=== PATIENT | female | born 1995 | race Caucasian/White ===

== ENCOUNTER 2016-09-07 09:17 | Emergency (ER) | payer SELFPAY ==
[2016-09-07 10:21] LABS: HCG URINE NEGATIVE (NEGATIVE)
[2016-09-07 10:22] LABS: APPEARANCE CLOUDY (CLEAR); BACTERIA MODERATE /hpf (NONE SEEN); BILIRUBIN NEGATIVE (NEGATIVE); COLOR YELLOW (YELLOW); GLUCOSE NEGATIVE (NEGATIVE); KETONE NEGATIVE (NEGATIVE); LEUKOCYTE ESTERASE 1+ (NEGATIVE); NITRITE NEGATIVE (NEGATIVE); PROTEIN NEGATIVE (NEGATIVE); UROBILINOGEN NORMAL (NORMAL); WHITE CELLS - URINE 0-5 /hpf (0-5)
[2016-09-07 10:23] LABS: EPITHELIAL CELLS 0-5 /hpf (0-5); RED CELLS - URINE NONE SEEN /hpf (0-5)
== END 2016-09-07 12:00 | disposition home or self-care (01) ==
LOC: D.ER 09:17
PROVIDERS: Emergency Medicine
DX: N76.0 Acute vaginitis (principal)

== ENCOUNTER 2018-01-12 11:47 | Emergency (ER) | payer SELFPAY ==
[~2018-01-12] VITALS: Ht 175.3 cm; Wt 80.0 kg
[2018-01-12 12:22] VITALS: Ht 175.3 cm; Wt 80.0 kg
[2018-01-12 14:49] VITALS: BP 119/84
== END 2018-01-12 14:49 | disposition home or self-care (01) ==
LOC: D.ER 11:47
DX: S00.83XA Contusion of other part of head, initial encounter (principal); V23.4XXA Motorcycle driver injured in collision with car, pick-up truck or van in traffic accident, initial encounter; Y93.89 Activity, other specified; Y92.410 Unspecified street and highway as the place of occurrence of the external cause; R22.9 Localized swelling, mass and lump, unspecified

== ENCOUNTER 2019-03-27 10:53 | Emergency (ER) | payer MEDICAID ==
[~2019-03-27] VITALS: Ht 175.3 cm; Wt 75.0 kg
[2019-03-27 10:58] VITALS: Ht 175.3 cm; Wt 75.0 kg
[2019-03-27 11:29] LABS: BASOPHILS 0.4 % (0-2); EOSINOPHILS 1.5 % (0-7); HEMATOCRIT 41.4 % (36.0-48.0); HEMOGLOBIN 14.4 g/dL (12-16); IMMATURE GRANULOCYTES 0.1 % (0-5); LYMPHOCYTES 32.7 % (15-50); MCH 30.4 pg (26.0-34.0); MCHC 34.8 g/dL (31.0-37.0); MCV 87.5 fL (80.0-100.0); MEAN PLATELET VOLUME 9.7 fL (7.4-10.4); MONOCYTES 7.8 % (2-11); NEUTROPHILS 57.5 % (40-80); PLATELET COUNT 257 10x3/uL (130-400); RBC 4.73 10x6/uL (4.00-5.40); WBC 7.6 10x3/uL (4.8-10.8)
[2019-03-27 11:46] LABS: APPEARANCE SL CLDY (CLEAR); BACTERIA MODERATE /hpf (NONE SEEN); BILIRUBIN NEGATIVE (NEGATIVE); COLOR YELLOW (YELLOW); EPITHELIAL CELLS 0-5 /hpf (0-5); GLUCOSE NEGATIVE (NEGATIVE); KETONE NEGATIVE (NEGATIVE); MUCUS <1+ /lpf (NONE SEEN); NITRITE NEGATIVE (NEGATIVE); PROTEIN NEGATIVE (NEGATIVE); SPECIFIC GRAVITY 1.005 (1.005-1.020); WHITE CELLS - URINE 0-5 /hpf (0-5)
[2019-03-27 11:50] LABS: ALBUMIN 4.1 g/dL (3.4-5.0); ALKALINE PHOSPHATASE 51 U/L (46-116); ALT (SGPT) 18 U/L (10-68); BILIRUBIN - TOTAL 0.48 mg/dL (0.2-1.3); CALC OSMOLALITY 283 mosm/kg (275-300); CARBON DIOXIDE 33.1 mmol/L (21.0-32.0); CHLORIDE - SERUM 103 mmol/L (98-107); CREATININE - SERUM 0.8 mg/dL (0.6-1.3); GLUCOSE 94 mg/dL (74-106); POTASSIUM - SERUM 4.2 mmol/L (3.5-5.1); SODIUM 143 mmol/L (136-145); UREA NITROGEN 10 mg/dL (7-18); eGFR NON AFRICAN AMERICAN > 90 mL/min (90-120)
[2019-03-27 11:51] LABS: HCG SERUM NEGATIVE (NEGATIVE)
[2019-03-27 12:44] VITALS: BP 132/74
== END 2019-03-27 13:51 | disposition home or self-care (01) ==
LOC: D.ER 10:53
PROVIDERS: Family Medicine
DX: N83.209 Unspecified ovarian cyst, unspecified side (principal)

== ENCOUNTER 2020-12-03 13:46 | Emergency (ER) | payer MEDICAID ==
[~2020-12-03] VITALS: Ht 175.3 cm; Wt 72.7 kg
[2020-12-03 13:49] VITALS: BP 112/59; Ht 175.3 cm; Wt 72.7 kg
[2020-12-03] MEDS ORDERED: DICLOFENAC SODI50 MG PO (14:11)
== END 2020-12-03 14:37 | disposition home or self-care (01) ==
LOC: D.ER 13:46
DX: S60.221A Contusion of right hand, initial encounter (principal); X58.XXXA Exposure to other specified factors, initial encounter; M79.641 Pain in right hand